=== PATIENT | female | born 1970 | race Caucasian/White ===

== ENCOUNTER 2018-01-25 16:27 | Emergency (ER) | payer OTHER ==
[2018-01-25] MEDS: ACETAMINOPHEN 500 MG TAB PO (20:04)
[2018-01-25] MEDS: KETOROLAC 30 MG INJ IM (20:04)
== END 2018-01-25 22:30 | disposition home or self-care (01) ==
LOC: FTE 16:27
DX: M25.562 Pain in left knee (principal); E11.9 Type 2 diabetes mellitus without complications; F17.210 Nicotine dependence, cigarettes, uncomplicated
CPT/HCPCS: 73562; 96372; 99284-25